=== PATIENT | female | born 1945 | race Caucasian/White ===

== ENCOUNTER 2019-04-17 22:34 | Emergency (ER) | payer MEDICARE, OTHER ==
--- NOTE | 2019-04-17 22:38 | EDM.PDOC ---
ED HPI GENERAL MEDICAL PROBLEM - General Chief Complaint: Genitourinary Problem Stated Complaint: DYSURIA Time Seen by Provider: 04/17/19 22:35 Source of Information: Reports: Patient, Old Records, RN, RN Notes Reviewed History Limitations: Reports: No Limitations - History of Present Illness INITIAL COMMENTS - FREE TEXT/NARRATIVE: Patient presents to the ED at [facility] for the evaluation of dysuria for the past three days. Patient states she was just seen at the [facility] on 03/28/2019 and was started on Cephalexin for a UTI. She states her symptoms really did not improve much since the last treatment. She denies any fever or chills. Denies any abdominal or pelvic pain. Patient denies any vaginal odor or discharge. No hematuria. No recent denton catheter or other instrumentation. She states she is voiding normal amounts of urine. She states her urine really does not have any strong odor. Patient has a long standing history of UTIs. She has not recently been seen by a Urologist. Onset Date: 04/14/19 - Related Data Home Meds: Home Meds Ciprofloxacin HCl 1 tab PO BID 5 Days #10 tablet 04/17/19 [Rx] ED ROS GENERAL - Review of Systems Review Of Systems: See Below Constitutional: Denies: Fever, Chills Respiratory: Denies: Shortness of Breath, Cough Cardiovascular: Denies: Chest Pain, Palpitations GI/Abdominal: Denies: Abdominal Pain, Nausea, Vomiting : Reports: Dysuria. Denies: Discharge, Flank Pain, Frequency, Hematuria, Urgency, Urinary Retention Neurological: Reports: No Symptoms ED EXAM, RENAL/ - Physical Exam Exam: See Below Exam Limited By: No Limitations General Appearance: Alert, No Apparent Distress Respiratory/Chest: No Respiratory Distress, Lungs Clear, Normal Breath Sounds Cardiovascular: Normal Peripheral Pulses, Regular Rate, Rhythm GI/Abdominal: Normal Bowel Sounds, Soft, Non-Tender Neurological: Alert, Oriented Course - Orders/Labs/Meds Orders: Active Orders 24 hr Category Date Time Status UA RFX MADELYN IF INDIC POC [POC] Stat Lab 04/17/19 22:57 Ordered Meds: Medications Discontinued Medications Generic Name Dose Route Start Last Admin Trade Name Freq PRN Reason Stop Dose Admin Ciprofloxacin 250 mg 04/17/19 22:57 Ciprofloxacin Hcl PO 04/17/19 22:58 ONETIME ONE Departure - Departure Time of Disposition: 22:54 Disposition: Home, Self-Care 01 Condition: Good Clinical Impression: Acute cystitis with hematuria - Discharge Information *PRESCRIPTION DRUG MONITORING PROGRAM REVIEWED*: Not Applicable *COPY OF PRESCRIPTION DRUG MONITORING REPORT IN PATIENT RADHA: Not Applicable Prescriptions: Ciprofloxacin HCl 1 tab PO BID 5 Days #10 tablet Instructions: Urinary Tract Infection, Adult Referrals: Padmini Knowles MD [Primary Care Provider] - Forms: ED Department Discharge Additional Instructions: 1. Stay well hydrated and rest 2. Continue with cranberry juice/pills 3. Start Cipro twice daily for 5 days 4. LOTS of water 5. May try OCT Azo or Cystex for any bladder discomfort 6. See your PCP as symptoms warrant - Problem List Review Problem List Initiated/Reviewed/Updated: Yes - My Orders Last 24 Hours: My Active Orders 04/17/19 22:57 UA RFX MADELYN IF INDIC POC [POC] Stat - Assessment/Plan Last 24 Hours: My Active Orders 04/17/19 22:57 UA RFX MADELYN IF INDIC POC [POC] Stat Assessment:: Acute Cystitis with hematuria Plan: Lab and assessment findings discussed with patient. Will start Cipro 250 mg BID for the next 5 days as patient has been on this before. Continue with cranberry pills. Stay very well hydrated. May try OTC Cystex or Azo for bladder discomfort. Recommend seeing PCP as symptoms warrant. Patient may benefit from a Urology consult due to chronic nature of UTIs.
[2019-04-17] MEDS ORDERED: Ciprofloxacin 250 MG Tab PO ONE (22:57)
== END 2019-04-17 23:09 | disposition home or self-care (01) ==
LOC: VM.ED 22:34
DX: N30.01 Acute cystitis with hematuria (principal)
CPT/HCPCS: 81000; 99283; A9270

== ENCOUNTER 2019-09-30 12:58 | Emergency (ER) | payer MEDICARE, OTHER ==
--- NOTE | 2019-09-30 13:18 | EDM.PDOC ---
ED HPI GENERAL MEDICAL PROBLEM - General Chief Complaint: Cardiovascular Problem Stated Complaint: PAIN IN LEFT SHOULDER, SOB Time Seen by Provider: 09/30/19 13:00 Source of Information: Reports: Patient History Limitations: Reports: No Limitations - History of Present Illness INITIAL COMMENTS - FREE TEXT/NARRATIVE: Patient presents to ER with complaints of shortness of breath and left shoulder discomfort. Has been noting dyspnea with exertion now for the last 2 weeks or so. Has had mild sinus congestion and a cough, questions if she has a sinus infection. Yesterday, started experiencing left shoulder pain, points to the trapezius area that "runs up my neck". Did carry groceries up yesterday but states "that is not a new thing for me to do". Denies nausea. No diaphoresis. She has no known cardiac history. Is treated for hyperlipidemia and hypertension. Family history of heart disease. Is unsure if ever had a stress test before. Onset: Gradual Duration: Day(s):, Waxing/Waning Location: Reports: Chest, Upper Extremity, Left Quality: Reports: Ache Severity: Mild Associated Symptoms: Reports: Chest Pain, Cough, Shortness of Breath. Denies: Confusion, Diaphoresis, Fever/Chills, Loss of Appetite, Nausea/Vomiting, Weakness Arm Pain Score (Numeric/FACES): 6 - Related Data Allergies Allergy/AdvReac Type Severity Reaction Status Date / Time amoxicillin Allergy Mild Rash Verified 09/30/19 13:18 Sulfa (Sulfonamide Allergy Mild Other Verified 09/30/19 13:18 Antibiotics) aspirin AdvReac Mild Nausea Verified 09/30/19 13:18 erythromycin base AdvReac Mild Nausea Verified 09/30/19 13:18 nitrofurantoin AdvReac Mild Nausea Verified 09/30/19 13:18 [From Macrobid] strawberry AdvReac Mild Indigestion Verified 09/30/19 13:18 pneumococcal 13 AdvReac Mild Other Uncoded 04/18/19 04:23 Home Meds: Home Meds Ciprofloxacin HCl 1 tab PO BID 5 Days #10 tablet 04/17/19 [Rx] Albuterol [Ventolin HFA] 2 puff IH ASDIRECTED PRN 04/18/19 [History] Biotin 5,000 mcg PO DAILY 04/18/19 [History] Cholecalciferol (Vitamin D3) [Vitamin D3] 1,000 unit PO DAILY 04/18/19 [History] Fluticasone Propionate [Flonase] 1 spray NASBOTH BID 04/18/19 [History] Ibuprofen 200 mg PO Q4HR PRN 04/18/19 [History] Lansoprazole [Prevacid] 15 mg PO QAM 04/18/19 [History] Levothyroxine 25 mcg PO QAM 04/18/19 [History] Olmesartan Medoxomil 40 mg PO DAILY 04/18/19 [History] Valsartan 160 mg PO DAILY 04/18/19 [History] Past Medical History HEENT History: Reports: Allergic Rhinitis, Other (See Below) Other HEENT History: Chronic nonseasonal allergic rhinitis due to pollen. Chronic allergic conjuctivitis. Presbyopia. Myopia Cardiovascular History: Reports: High Cholesterol, Hypertension, Other (See Below) Other Cardiovascular History: Stenosis of right carotid artery Respiratory History: Reports: Asthma, Other (See Below) Other Respiratory History: Mild intermittent asthma without complication Gastrointestinal History: Reports: GERD, Hemorrhoids, Other (See Below) Other Gastrointestinal History: External hemorrhoids Genitourinary History: Reports: UTI, Recurrent, Other (See Below) Other Genitourinary History: Benign microscopic hematuria. Acute cystitis without hematuria DIVISION COMMANDER History: Reports: Other (See Below) Other DIVISION COMMANDER History: Vaginal burning Musculoskeletal History: Reports: Neck Pain, Chronic, Other (See Below) Other Musculoskeletal History: Right shoulder pain. Contusion of the right shoulder. Low back pain potentially associated with radiculopathy Neurological History: Reports: Migraines, Vertigo, Other (See Below) Other Neuro History: Spinal stenosis of lumbar region with neurogenic claudication. Migraine without aura and without status migrainosus, not intractable. Benign paroxysmal vertigo Psychiatric History: Reports: Anxiety, Other (See Below) Other Psychiatric History: High risk medication use Endocrine/Metabolic History: Reports: Hypothyroidism, Obesity/BMI 30+, Vitamin D Deficiency, Other (See Below) Other Endocrine/Metabolic History: Fasting hyperglycemia. Hypothyroidism due to acquired atrophy of thyroid Dermatologic History: Reports: Other (See Below) Other Dermatologic History: Heel callus. Disorder of bone - Past Surgical History HEENT Surgical History: Reports: Adenoidectomy, Tonsillectomy GI Surgical History: Reports: Cholecystectomy Female Surgical History: Reports: Hysterectomy, Tubal Ligation, Other (See Below) Other Female Surgeries/Procedures: Vaginal hysterectomy with partial vaginectomy Social & Family History - Tobacco Use Smoking Status *Q: Unknown Ever Smoked ED ROS GENERAL - Review of Systems Review Of Systems: See Below Constitutional: Reports: Fatigue. Denies: Fever, Chills, Malaise, Weakness, Decreased Appetite HEENT: Reports: Rhinitis, Sinus Problem. Denies: Ear Pain Respiratory: Reports: Shortness of Breath, Cough Cardiovascular: Denies: Chest Pain, Edema, Lightheadedness Endocrine: Denies: Fatigue GI/Abdominal: Denies: Abdominal Pain, Nausea, Vomiting : Reports: No Symptoms Musculoskeletal: Reports: Neck Pain, Shoulder Pain Skin: Reports: No Symptoms Neurological: Reports: No Symptoms Psychiatric: Reports: No Symptoms ED EXAM, GENERAL - Physical Exam Exam: See Below Exam Limited By: No Limitations General Appearance: Alert, WD/WN, No Apparent Distress Ears: Normal External Exam, Normal TMs Nose: Normal Inspection, Normal Mucosa, Nasal Drainage Throat/Mouth: Normal Inspection, Normal Oropharynx Head: Normocephalic Neck: Normal Inspection, Supple, Non-Tender Respiratory/Chest: No Respiratory Distress, Lungs Clear, Normal Breath Sounds Cardiovascular: Regular Rate, Rhythm GI/Abdominal: Normal Bowel Sounds, Soft, Non-Tender Extremities: Normal Inspection, No Pedal Edema Neurological: Alert, Oriented Skin Exam: Warm, Dry EKG INTERPRETATION Rhythm: NSR Course - Vital Signs Last Recorded V/S: Last Vital Signs Temp 99.1 F 09/30/19 13:19 Pulse 76 09/30/19 13:19 Resp 18 09/30/19 13:19 BP 152/81 H 09/30/19 13:19 Pulse Ox 96 09/30/19 13:19 - Orders/Labs/Meds Orders: Active Orders 24 hr Category Date Time Status EKG 12 Lead [EKG Documentation Completion] [RC] STAT Care 09/30/19 13:50 Active Labs: Laboratory Tests 09/30/19 09/30/19 09/30/19 Range/Units 13:27 13:27 13:27 WBC 13.1 H (4.0-10.0) x10^3/uL RBC 4.69 (4.00-5.50) x10^6/uL Hgb 13.5 (12.0-16.0) g/dL Hct 40.3 (33.0-47.0) % MCV 85.9 (78.0-93.0) fL MCH 28.8 (26.0-32.0) pg MCHC 33.5 (32.0-36.0) g/dL RDW Coeff of Sarah 13.6 (10.0-15.0) % Plt Count 305 (130-400) x10^3/uL Neut % (Auto) 73.4 (50.0-80.0) % Lymph % (Auto) 15.7 L (25.0-50.0) % [place] % (Auto) 8.9 (2.0-11.0) % Eos % (Auto) 1.8 (0.0-4.0) % Baso % (Auto) 0.2 (0.2-1.2) % D-Dimer, Quantitative 0.51 (<=0.58) mg/LFEU Sodium 141 (136-145) mmol/L Potassium 4.1 (3.5-5.1) mmol/L Chloride 106 (98-107) mmol/L Carbon Dioxide 25 (21-32) mmol/L Anion Gap 14.1 (10-20) mmol/L BUN 13 (7-18) mg/dL Creatinine 0.8 (0.55-1.02) mg/dL Est Cr Clr Drug Dosing 54.08 mL/min Estimated GFR (MDRD) > 60 Glucose 91 (74-106) mg/dL Calcium 8.9 (8.5-10.1) mg/dL Corrected Calcium 8.98 (8.5-10.1) mg/dL Total Bilirubin 0.5 (0.2-1.0) mg/dL AST 20 (15-37) U/L ALT 24 (14-59) U/L Alkaline Phosphatase 72 (46-116) U/L Lactate Dehydrogenase 189 (81-234) U/L Creatine Kinase 102 (26-192) U/L Troponin I < 0.017 (<=0.056) ng/mL C-Reactive Protein 0.5 (<=0.9) mg/dL Total Protein 7.1 (6.4-8.2) g/dL Albumin 3.9 (3.4-5.0) g/dL Globulin 3.2 Albumin/Globulin Ratio 1.22 - Re-Assessments/Exams Free Text/Narrative Re-Assessment/Exam: 09/30/19 14:10 Labs are all normal. EKG normal. Chest xray shows a mildly enlarged heart but no infiltrate. Discussed with patient. May want to consider follow up with PCP in order to obtain stress test due to mild heart enlargement and dyspnea with exertion. Patient advised to follow up if chest pain worsens Departure - Departure Time of Disposition: 14:11 Disposition: Home, Self-Care 01 Condition: Good Clinical Impression: Atypical chest pain, Dyspnea on exertion Forms: ED Department Discharge Additional Instructions: 1. Rest 2. Push fluids 3. Tylenol for shoulder discomfort 4. Decongestants as needed 5. Follow up if develop fever, increased shortness of breath or chest pain. 6. Follow up with primary care provider to consider cardiolyte stress test due to fatigue and dyspnea with exertion Sepsis Event Note - Focused Exam Vital Signs: Vital Signs Temp Pulse Resp BP Pulse Ox 09/30/19 13:19 99.1 F 76 18 152/81 H 96 Date Exam was Performed: 09/30/19 Time Exam was Performed: 14:10 - My Orders Last 24 Hours: My Active Orders 09/30/19 13:50 EKG 12 Lead [EKG Documentation Completion] [RC] STAT - Assessment/Plan Last 24 Hours: My Active Orders 09/30/19 13:50 EKG 12 Lead [EKG Documentation Completion] [RC] STAT
[2019-09-30 13:57] LABS: ANION GAP 14.1 mmol/L (10-20); CHLORIDE,CL 106 mmol/L (98-107); SODIUM,NA 141 mmol/L (136-145)
--- NOTE | 2019-09-30 13:57 | CR ---
[id number] RAD/RAD Chest PA And Lateral EXAM: FRONTAL AND LATERAL CHEST INDICATION: SHORTNESS OF BREATH. COMPARISON: None. DISCUSSION: The heart is mildly enlarged with early central vascular congestion suggesting congestive heart failure. Mild bibasilar atelectasis could obscure infiltrates or other underlying pathology. IMPRESSION: 1. Mild congestive heart failure. 2. Mild bibasilar atelectasis. Damon Ramos MD 09/30/19 [id number] Thank you for allowing us to participate in the care of your patient.
== END 2019-09-30 14:30 | disposition home or self-care (01) ==
LOC: VM.ED 12:58
DX: R07.89 Other chest pain (principal); R06.02 Shortness of breath; E66.9 Obesity, unspecified; E03.9 Hypothyroidism, unspecified; I10 Essential (primary) hypertension; J45.909 Unspecified asthma, uncomplicated; Z98.890 Other specified postprocedural states; Z90.49 Acquired absence of other specified parts of digestive tract; Z98.51 Tubal ligation status; Z90.710 Acquired absence of both cervix and uterus; Z88.1 Allergy status to other antibiotic agents; Z88.2 Allergy status to sulfonamides; Z88.6 Allergy status to analgesic agent; Z91.018 Allergy to other foods; Z79.899 Other long term (current) drug therapy
CPT/HCPCS: 36415; 71046; 80053; 82550; 83615; 84484; 85025; 85379; 86140; 93005; 93010; 99284-GF; 99285-25